=== PATIENT | male | born 1995 | race Caucasian/White ===

== ENCOUNTER → 2020-10-13 10:58 | Outpatient (CLI) | payer OTHER, SELFPAY ==
[2020-10-14 18:33] LABS: SARS-CoV-2 RNA PCR Negative
== END ==
PROVIDERS: PCP Family Medicine; Visit Provider Nurse Practitioner Family
DX: R05 Cough (principal); Z20.822 Contact with and (suspected) exposure to COVID-19
CPT/HCPCS: C9803; U0003; U0005

== ENCOUNTER 2020-12-27 14:17 | Emergency (ER) | payer OTHER, SELFPAY ==
--- NOTE | ~2020-12-27 | XR_ITS ---
EXAMINATION: XR chest 1V portable 12/27/2020 14:36 INDICATION: Cough and congestion PROCEDURE: AP portable chest COMPARISON: 12/23/2018 FINDINGS: The lungs are clear. The cardiomediastinal silhouette is within normal limits. There are no pleural effusions. There is no pneumothorax suspected. IMPRESSION: 1: NO ACUTE CARDIOPULMONARY DISEASE. Reviewed, dictated and finalized at location A.
[2020-12-27 14:19] VITALS: BP 140/89; PULSE 90; RESP 17; TEMP 36.4; O2SAT 100
[2020-12-27 14:27] VITALS: O2SAT 100
--- NOTE | 2020-12-27 15:15 | ED.GENADULT ---
HPI - General Adult General Chief complaint: Upper Respiratory Infection Stated complaint: i've been feeling sick for the last 3 days Time Seen by Provider: 12/27/20 14:27 Source: patient Mode of arrival: ambulatory Limitations: no limitations History of Present Illness HPI narrative: Patient presents for evaluation of sore throat for the last three days. He reports sinus congestion, mucopurulent discharge from both nares, and subjective fever. He has also had a productive cough of clear/yellow sputum. No objective fevers, chills, nausea, vomiting. No one else has similar symptoms. He has received both of his COVID vaccines. He has some myalgias and joint pain. He has tried several OTC therapies with mild improvement in his symptoms. He admits to vaping. Related Data Allergies Allergy/AdvReac Type Severity Reaction Status Date / Time No Known Allergies Allergy Verified 12/27/20 14:27 Review of Systems Review of Systems: Narrative: CONSTITUTIONAL: Reports subjective fever. Denies objective fever, chills, or sweats. EYES: Denies visual changes, redness, or discharge. ENT: Reports sore throat, sinus congestion and thick mucopurulent drainage from both nares. CARDIOVASCULAR: Denies chest pain, palpitations, or edema. RESPIRATORY: Reports productive cough of yellow sputum. Denies SOB. GASTROINTESTINAL: Denies abdominal pain, nausea, vomiting, or diarrhea. GENITOURINARY: Denies dysuria or hematuria. SKIN: Denies rash or itching. MUSCULOSKELETAL: Reports generalized myalgias and joint pain NEUROLOGIC: Denies headache, numbness, dizziness, or weakness. PSYCHIATRIC: Denies anxiety or depression. [facility] Past Medical History Medical History Clavicle fracture, shaft (12/23/18) Hx of fracture of clavicle Pain of left clavicle Right rotator cuff tendinitis Surgical History Surgical History Hx of tonsillectomy Family History Family History Mother Hypertension Other Family history of arthritis Social History Social History Smoking status: Current every day smoker Tobacco type: e-cigarettes/vaping Alcohol intake: current Drinks per week: 4 Substance use: former Substance use type: marijuana Gender identity (if verbalized by the patient): Male Exam Narrative: Exam Narrative: GENERAL: Well-appearing, well-nourished, and in no acute distress. HEAD: Normocephalic, atraumatic. EYES: PERRLA and EOMI. ENT: Nares clear, no rhinorrhea or epistaxis. Mucous membranes moist. Tonsils are surgically absent. Posterior pharyngeal erythema without exudate. Uvula is midline. Bilateral TMs pearly brooks nonbulging NECK: Supple. No adenopathy or masses. No carotid bruits or JVD CHEST: Clear to auscultation. No respiratory distress. No wheezes rales or rhonchi HEART: Regular rate and rhythm. No murmur heard. Normal peripheral pulses. ABDOMEN: Soft, nontender, nondistended, normal active bowel sounds. EXTREMITIES: Normal range of motion. No edema. SKIN: Warm, dry, no rash. NEURO: No focal deficits. Alert and oriented x3. PSYCH: Normal mood and affect. Course Course Emergency Course: This is a 25-year-old male who presents with complaints of sore throat, mucopurulent drainage from both nares, productive cough of yellow sputum. CXR negative. Hx of tonsillitis. He has symptoms consistent with ABRS and was started on augmentin. Continue with OTC therapies as needed. Follow up outpatient and return for worsening symptoms. Pt in agreement with plan of care. Vital Signs Vital signs: Vital Signs Temperature 36.4 C 12/27/20 14:19 Pulse Rate 90 12/27/20 14:19 Respiratory Rate 17 12/27/20 14:19 Blood Pressure 140/89 12/27/20 14:19 Pulse Oximetry 100 12/27/20 14:19
[2020-12-27 15:39] VITALS: BP 138/84; PULSE 92; RESP 18; O2SAT 100
== END 2020-12-27 15:41 | disposition home or self-care (01) ==
PROVIDERS: Emergency Provider Nurse Practitioner; PCP Family Medicine
DX: J02.9 Acute pharyngitis, unspecified (principal); J01.80 Other acute sinusitis; F17.290 Nicotine dependence, other tobacco product, uncomplicated
CPT/HCPCS: 71045; 87081; 87880; 99283

== ENCOUNTER 2021-07-06 03:06 | Day surgery (SDC) | payer OTHER, SELFPAY ==
[2021-06-18 14:21] VITALS: BMI 25.0
[2021-07-06 08:01] VITALS: BP 142/76; PULSE 58; RESP 18; TEMP 36.2; O2SAT 100
[2021-07-06] MEDS: LACTATED RINGERS 1,000 ML 150 ML IV CONT (08:08)
--- NOTE | 2021-07-06 08:41 | P.PNAN_ITS ---
Anes - Initial Pre Proc Eval Procedure: Operation Date: 07/06/21 09:00 Proposed Procedures p Colonoscopy - Jorje Nunez MD Date/Time: 07/06/21 08:41 Surgeon: Jorje Nunez MD Pre Op Diagnosis: diarrhea Patient Data Age: 25 Gender: M Height: 1.85 m Weight: 92.1 kg Last Vital Signs Temp 97.1 F L 07/06/21 08:01 Pulse 58 L 07/06/21 08:01 Resp 18 07/06/21 08:01 BP 142/76 H 07/06/21 08:01 Pulse Ox 100 07/06/21 08:01 Allergies Allergy/AdvReac Type Severity Reaction Status Date / Time No Known Allergies Allergy Verified 07/06/21 07:59 Home Medications Medication Instructions Recorded Confirmed Type albuterol sulfate 90 mcg/actuation 1 puff INHALATION Q4H PRN 06/22/21 07/06/21 History aerosol inhaler escitalopram oxalate 5 mg PO DAILY 07/03/21 07/06/21 History methylphenidate HCl [Ritalin] 10 mg PO BID PRN 07/03/21 07/06/21 History Patient hx anesthesia problems: none Family hx anesthesia problems: none Results Review: All pre-operative results and documents have been reviewed as part of the pre-operative evaluation. [facility] Past Medical History Medical History (Updated 06/22/21 @ 14:19 by Yolanda De La Fuente CMA) Allergies Asthma Clavicle fracture, shaft (12/23/18) History of IBS Hx of fracture of clavicle Pain of left clavicle Right rotator cuff tendinitis Surgical History Surgical History Hx of tonsillectomy Family History Family History (Updated 06/22/21 @ 14:21 by Yolanda De La Fuente CMA) Mother Hypertension Father Depression Hypertension Sibling Asthma Depression Heart problem Grandparent Alcoholism Cancer Hypertension Depression Cerebrovascular accident Other Family history of arthritis Social History Social History Smoking status: Current every day smoker Tobacco type: e-cigarettes/vaping Alcohol intake: current Drinks per week: 5 Substance use: former Substance use type: marijuana Living arrangements: with family Gender identity (if verbalized by the patient): Male Sexual Orientation (if Verbalized by the Patient): Straight or Heterosexual Spiritual care concerns: No Anes - Eval Final PreProcedure Day of Procedure 07/06/21 08:41 Patient weight: overweight Heart: regular rate and rhythm Lungs: clear to auscultation Airway: Mallampati scale class II Neurological: alert and oriented Last oral intake: >/= 8 hours ASA classification: II Emergent: no Anesthetic plan: proceed Anesthesia type and monitoring: general GIVS and standard monitoring Results Review: All pre-operative results and documents have been reviewed as p art of the pre-operative evaluation. Informed Consent: The patient's anesthetic plan and its attendant risks and benefits were discussed with the patient/family/POA. Questions were solicited and answers provided to the satisfaction of the patient/family/POA.
--- NOTE | 2021-07-06 08:46 | PM.HPGS ---
History of Present Illness History of Present Illness Consent: Risks, benefits, and alternatives have been discussed and questions answered. Patient agrees to proceed with procedure. Chief complaint: diarrhea Narrative: Manuel Neal is a 25 year old male who has been suffering from diarrhea for several months. He would typically have 2 days of loose stools and may be 1 day of normal bowel movement. Recently however he has had continuing diarrhea, watery stools for the past couple of weeks. He does not see blood in his stools. One sibling he thinks may have a problem with gluten. The patient has not lost weight Review of Systems Review of Systems: All systems reviewed & are unremarkable except as noted in HPI and below PMFSH Past Medical History Medical History Allergies Asthma Clavicle fracture, shaft (12/23/18) History of IBS Hx of fracture of clavicle Pain of left clavicle Right rotator cuff tendinitis Surgical History Surgical History Hx of tonsillectomy Family History Family History Mother Hypertension Father Depression Hypertension Sibling Asthma Depression Heart problem Grandparent Alcoholism Cancer Hypertension Depression Cerebrovascular accident Other Family history of arthritis Social History Social History Smoking status: Current every day smoker Tobacco type: e-cigarettes/vaping Alcohol intake: current Drinks per week: 5 Substance use: former Substance use type: marijuana Living arrangements: with family Gender identity (if verbalized by the patient): Male Sexual Orientation (if Verbalized by the Patient): Straight or Heterosexual Spiritual care concerns: No Meds Home Medications and Allergies Home Medications Medication Instructions Recorded Confirmed Type albuterol sulfate 90 mcg/actuation 1 puff INHALATION Q4H PRN 06/22/21 07/06/21 History aerosol inhaler escitalopram oxalate 5 mg PO DAILY 07/03/21 07/06/21 History methylphenidate HCl [Ritalin] 10 mg PO BID PRN 07/03/21 07/06/21 History Allergies Allergy/AdvReac Type Severity Reaction Status Date / Time No Known Allergies Allergy Verified 07/06/21 07:59 Vital Signs Vital Signs - 24 hr 07/06/21 08:01 Temperature 36.2 C L Pulse Rate 58 L Respiratory Rate 18 Blood Pressure 142/76 H Pulse Oximetry 100 Exam Resp: Auscultation: clear to auscultation bilaterally Cardio: Rate: regular rate Rhythm: regular rhythm GI: GI Palp: Yes Soft to palpation and No Tenderness to palpation present (GI) Assessment and Plan Assessment and plan (1) Diarrhea: Code(s): R19.7 - Diarrhea, unspecified Status: Acute Assessment and Plan: Colonoscopy with possible biopsy or polypectomy or cautery or injection of substances.
[2021-07-06 09:05] VITALS: BP 104/52; PULSE 61; RESP 18; O2SAT 97
[2021-07-06 09:15] VITALS: BP 106/57; PULSE 62; RESP 17; O2SAT 97
== END 2021-07-06 09:31 | disposition home or self-care (01) ==
PROVIDERS: PCP Family Medicine; Visit Provider Internal Medicine Gastroenterology
PROC: 0DJD8ZZ Inspection of Lower Intestinal Tract, Via Natural or Artificial Opening Endoscopic (ICD-10-PCS; CPT 45378; principal; 2021-07-06 09:00)
DX: Z12.11 Encounter for screening for malignant neoplasm of colon (principal); K52.9 Noninfective gastroenteritis and colitis, unspecified; J45.909 Unspecified asthma, uncomplicated; Z79.51 Long term (current) use of inhaled steroids; F17.290 Nicotine dependence, other tobacco product, uncomplicated
CPT/HCPCS: 45380; 88305; J2704; J7120

== ENCOUNTER 2021-08-25 12:19 | Outpatient (CLI) | payer BC, SELFPAY ==
--- NOTE | ~2021-08-25 | XR_ITS ---
XR sacroiliac joints min 3V DATE: 08/25/2021 12:59 INDICATION: Abnormal serological immunological findings TECHNIQUE: AP and bilateral oblique views COMPARISON: None FINDINGS: The pubic symphysis and sacroiliac joints appear intact. No erosive change or ankylosis of the sacroiliac joints. IMPRESSION: Negative Reviewed, dictated and finalized at Location A. Reviewed, dictated and finalized at location A. [facility] [employer] IMPRESSION: Negative
--- NOTE | ~2021-08-25 | XR_ITS ---
XR lumbar spine min 4V DATE: 08/25/2021 12:59 INDICATION: Abnormal immunological findings in serum TECHNIQUE: AP, lateral, coned lateral lumbosacral and bilateral oblique views COMPARISON: None FINDINGS: There are six functional lumbar vertebra. Bilateral L5 pars interarticularis defects are s uggested. Otherwise no fracture or bone destruction or spondylolisthesis. The lumbar pedicles are in tact. The sacroiliac joints are normal. IMPRESSION: Suggestion of bilateral L5 pars interarticularis defects; no spondylolisthesis or other s ignificant finding Normal sacroiliac joints Reviewed, dictated and finalized at location A. 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
== END 2021-08-25 12:20 | disposition home or self-care (01) ==
PROVIDERS: PCP Family Medicine; Visit Provider Internal Medicine
DX: M46.90 Unspecified inflammatory spondylopathy, site unspecified (principal); R19.7 Diarrhea, unspecified; R76.8 Other specified abnormal immunological findings in serum
CPT/HCPCS: 72110; 72202

== ENCOUNTER 2022-04-11 13:54 | Emergency (ER) | payer BC, SELFPAY ==
--- NOTE | ~2022-04-11 | XR_ITS ---
XR ankle RT min 3V DATE: 04/11/2022 14:28 INDICATION: Right ankle injury, lateral Technique: 4 views COMPARISON: None FINDINGS: No fracture or dislocation of the ankle or disruption of the ankle mortise. No periosteal r eaction or bone destruction. No soft tissue swelling. IMPRESSION: Negative Reviewed, dictated and finalized at location A. IMPRESSION: Negative
[2022-04-11 13:57] VITALS: BP 135/88; PULSE 76; RESP 15; TEMP 36.3; O2SAT 100
--- NOTE | 2022-04-11 14:09 | ED.LOWEXIN ---
HPI - Extremity Injury (Lower) General Chief Complaint: Extremity Injury, Lower Stated Complaint: Right ankle injury x 2 days ago Time Seen by Provider: 04/11/22 14:08 Source: patient Mode of arrival: ambulatory Limitations: no limitations History of Present Illness HPI Narrative: This is a 26 year old male that presents to the ER for right ankle injury sustained two nights ago. Reports he had been drinking Tuesday night and he thinks he twisted his ankle. He woke up on Tuesday with swelling and pain to the ankle. Denies any other injuries. Denies decreased ROM or numbness. Related Data Home Medications Medication Instructions Recorded Confirmed albuterol sulfate 90 mcg/actuation 1 puff inhalation Q4H PRN other 06/22/21 08/25/21 aerosol inhaler Allergies Allergy/AdvReac Type Severity Reaction Status Date / Time No Known Allergies Allergy Verified 04/11/22 14:35 Review of Systems Review of Systems: CONSTITUTIONAL: Denies fever MUSCULOSKELETAL: Reports joint pain, and myalgia. NEUROLOGIC: Denies numbness All systems reviewed & are unremarkable except as noted in HPI and below PMFSH Past Medical History Medical History Allergies Asthma Axial spondyloarthritis (~08/2021) Clavicle fracture, shaft (12/23/18) History of IBS Hx of fracture of clavicle Pain of left clavicle Right rotator cuff tendinitis Surgical History Surgical History Hx of tonsillectomy Family History Family History Mother Hypertension Father Depression Hypertension Sibling Asthma Depression Heart problem Grandparent Alcoholism Cancer Hypertension Depression Cerebrovascular accident Other Family history of arthritis Social History Social History Smoking status: Current every day smoker Tobacco type: e-cigarettes/vaping Alcohol intake: current Drinks per week: 5 Substance use: former Substance use type: marijuana Gender identity (if verbalized by the patient): Male Sexual Orientation (if Verbalized by the Patient): Straight or Heterosexual Spiritual care concerns: No Exam Narrative: GENERAL: Well-appearing, well-nourished, and in no acute distress. HEAD: Normocephalic, atraumatic. EYES: EOMI. EXTREMITIES: Normal range of motion. No obvious deformity. Mild edema about the right lateral malleoli. Normal DP pulse. Normal sensation SKIN: Warm, dry, no rash. NEURO: No focal deficits. Alert and oriented x3. PSYCH: Normal mood and affect Course Vital Signs Vital signs: Vital Signs Temperature 97.3 F L 04/11/22 13:57 Pulse Rate 76 04/11/22 13:57 Respiratory Rate 15 04/11/22 13:57 Blood Pressure 135/88 04/11/22 13:57 Pulse Oximetry 100 04/11/22 13:57 Oxygen Delivery Room Air 04/11/22 13:57 Temperature 97.3 F L 04/11/22 13:57 Pulse Rate 76 04/11/22 13:57 Respiratory Rate 15 04/11/22 13:57 Blood Pressure 135/88 04/11/22 13:57 Pulse Oximetry 100 04/11/22 13:57 Oxygen Delivery Room Air 04/11/22 13:57 MDM - Extremity Injury (Lower) MDM Narrative Medical decision making narrative: This is a 26 year old male that presents to the ER for right ankle pain after an injury sustained 2 days ago. Patient is neurovascularly intact. Ankle x-ray without acute osseous abnormalities. Patient placed in Cam wrap and given crutches. Instructed on care of ankle sprain. He is to follow-up with primary care doctor. He was given warnings to return to the ER Imaging Data Radiologist's impression: ITS Impressions Ankle X-Ray 04/11/22 14:32 IMPRESSION: Negative Critical Care Time Critical Care Time Critical Care Time: No Discharge Plan Discharge Clinical Impression: Ankle sprain Qualifiers: Encounter type: initial
== END 2022-04-11 14:57 | disposition home or self-care (01) ==
PROVIDERS: Emergency Provider Emergency Medicine; PCP Family Medicine
DX: S93.401A Sprain of unspecified ligament of right ankle, initial encounter (principal); X50.0XXA Overexertion from strenuous movement or load, initial encounter; J45.909 Unspecified asthma, uncomplicated; Z79.51 Long term (current) use of inhaled steroids; F17.290 Nicotine dependence, other tobacco product, uncomplicated
CPT/HCPCS: 73610; 99283

== ENCOUNTER 2023-01-18 11:05 | Outpatient (CLI) | payer OTHER, SELFPAY ==
--- NOTE | ~2023-01-18 | US_ITS ---
US abdomen limited INDICATION: Transaminitis PROCEDURE: Realtime right upper abdominal ultrasound. COMPARISON: No prior studies for comparison. FINDINGS: The pancreas is normal without focal mass or pancreatic ductal dilation. Liver echotexture is normal without focal mass or intrahepatic biliary dilatation. There is normal directional flow i n the portal vein. The gallbladder is normal without stones, gallbladder wall thickening or pericholecystic fluid. Comm on bile duct measures 3 mm. No sonographic Wing's sign. IMPRESSION: 1: Normal limited abdominal ultrasound. Reviewed, dictated and finalized at location L.
[2023-01-18 11:40] LABS: Basophils Absolute Auto 0.1 K/mm3 (0.0-0.1); Basophils Percent Auto 1.1 % (0.2-1.2); Eosinophils Absolute Auto 0.3 K/mm3 (0-0.3); Eosinophils Percent Auto 6.2 % (0-4.4); Hematocrit 47.8 % (42.0-52.0); Hemoglobin 16.4 g/dL (14.0-18.0); Immature Granulocyte Absolute 0.01 K/mm3 (0.00-0.031); Immature Granulocyte Percent A 0.2 % (0-0.5); Lymphocytes Absolute Auto 1.15 K/mm3 (0.9-3.2); Lymphocytes Percent Auto 24.5 % (18.3-44.2); Mean Corpuscular HGB Conc 34.3 g/dl (32-36); Mean Corpuscular Hemoglobin 30.9 pg (26-34); Mean Corpuscular Volume 90.2 fl (80-100); Mean Platelet Volume 10.9 fl (7.4-10.4); Monocytes Absolute Auto 0.8 K/mm3 (0.1-0.6); Monocytes Percent Auto 17.9 % (2.6-8.5); Neutrophils Absolute Auto 2.4 K/mm3 (1.3-6.7); Neutrophils Percent Auto 50.1 % (45.5-73.1); Platelet Count Result 222 k/mm3 (150-375); Red Cell Distribution Width 12.1 % (11.5-14.5); White Blood Count 4.7 K/mm3 (4.5-10.0)
[2023-01-18 12:02] LABS: Alanine Aminotransferase 127 U/L (6-50); Albumin Level 4.2 g/dL (3.5-5.1); Alkaline Phosphatase 48 U/L (38-126); Anion Gap 8 mmol/L (8-16); Aspartate Amino Transferase 77 U/L (17-59); Bilirubin,Total 0.4 mg/dL (0.2-1.3); Blood Urea Nitrogen 10 mg/dL (9-20); Calcium 8.8 mg/dL (8.4-10.2); Carbon Dioxide 28 mmol/L (22-30); Chloride 105 mmol/L (98-107); Creatine Kinase 99 U/L (55-170); Estimated Glomerular Filt Rate > 60; Glucose 89 mg/dL (65-110); Potassium 4.1 mmol/L (3.4-5.0); Sodium 141 mmol/L (137-145)
[2023-01-21 19:27] LABS: GGT 26 U/L (3-70)
== END 2023-01-18 11:06 | disposition home or self-care (01) ==
PROVIDERS: PCP Family Medicine; Visit Provider Physician Assistant
DX: R74.01 Elevation of levels of liver transaminase levels (principal); R71.8 Other abnormality of red blood cells
CPT/HCPCS: 36415; 76705; 80048; 80076; 82550; 82977; 85025

== ENCOUNTER 2023-07-11 13:25 | Emergency (ER) | payer OTHER, SELFPAY ==
--- NOTE | ~2023-07-11 | XR_ITS ---
EXAMINATION: XR toe 1st RT min 2V DATE: 07/11/2023 14:45 INDICATION: Possible open fracture at the right great toe TECHNIQUE: Dorsal plantar, lateral and oblique views of the right first were obtained. COMPARISON: None FINDINGS: Bone alignment is normal. There is a tiny ovoid ossific density with smooth margins overlying what ap pears to be a chronic juxta articular erosion at the medial head of the right first proximal phalanx. Appearance suggests either sequela chronic avulsion fracture or dystrophic calcification related ero libia secondary to or inflammatory or crystalline arthropathy such as gout. There is an additional age -indeterminate tiny calcific density projecting along the dorsal/medial margin of the tuft of the rig ht first distal phalanx but without evident donor site to more specifically suggest fracture. No othe r lesions suspicious for fracture identified. Joint spaces are normal. Soft tissues are unremarkable. IMPRESSION: 1. Tiny age-indeterminate calcific density along the medial tuft of the right distal phalanx without definitive fracture line or evident donor site to more specifically suggest fracture. 2. Additional tiny chronic appearing ossific density adjacent to a chronic appearing erosions with co rticated margins at the medial head of the first proximal phalanx suggesting either sequela of chroni c medial collateral ligament avulsion injury or dystrophic calcific lesion in setting of an inflammat ory arthritis such as gout. Reviewed, dictated and finalized at location A. 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 Tiny age-indeterminate calcific density along the medial tuft of the right d istal phalanx without definitive fracture line or evident donor site to more sp ecifically suggest fracture. 2. Additional tiny chronic appearing ossific density adjacent to a chronic appe aring erosions with corticated margins at the medial head of the first proximal phalanx suggesting either sequela of chronic medial collateral ligament avulsi on injury or dystrophic calcific lesion in setting of an inflammatory arthritis such as gout.
[2023-07-11 13:38] VITALS: BP 141/92; PULSE 64; RESP 20; TEMP 36.8; O2SAT 99
[2023-07-11] MEDS: TETANUS,DIPHTHERIA,AC PERTUSSIS ADULT (0.5 ML) BOOSTRIX IM (14:21)
[2023-07-11] MEDS: CEPHALEXIN 500 MG CAPSULE PO (14:21)
--- NOTE | 2023-07-11 14:32 | ED.LOWEXIN ---
HPI - Extremity Injury (Lower) General Chief Complaint: Extremity Injury, Lower Stated Complaint: right great toe injury Time Seen by Provider: 07/11/23 14:17 Source: patient Mode of arrival: ambulatory Limitations: no limitations History of Present Illness HPI Narrative: This is a 27 year old male that presents to the ER for right great toe pain. Ongoing since an injury yesterday. Reports he dropped a board on his great toe. He was seen at urgent care and sent to the ER for further evaluation. He is not up to date on tetanus. Denies numbness. Related Data Home Medications Medication Instructions Recorded Confirmed albuterol sulfate 90 mcg/actuation 1 puff inhalation Q4H PRN other 06/22/21 05/12/23 aerosol inhaler dextroamphetamine-amphetamine 5 mg 5 mg PO DAILY 12/29/22 05/12/23 tablet (Adderall) lisdexamfetamine 60 mg capsule 60 mg PO DAILY 12/29/22 05/12/23 (Vyvanse) Allergies Allergy/AdvReac Type Severity Reaction Status Date / Time No Known Allergies Allergy Verified 05/12/23 13:06 Review of Systems Review of Systems: CONSTITUTIONAL: Denies fever MUSCULOSKELETAL: Reports joint pain, and myalgia. NEUROLOGIC: Denies numbness All systems reviewed & are unremarkable except as noted in HPI and below PMFSH Past Medical History Medical History Allergies Asthma Axial spondyloarthritis (~08/2021) Clavicle fracture, shaft (12/23/18) Exposure to communicable disease History of IBS Hx of fracture of clavicle Pain of left clavicle Right rotator cuff tendinitis Surgical History Surgical History Hx of tonsillectomy Status post ORIF of fracture of ankle Family History Family History Mother Hypertension Father Depression Hypertension Sibling Asthma Depression Heart problem Grandparent Alcoholism Cancer Hypertension Depression Cerebrovascular accident Other Family history of arthritis Social History Social History Smoking status: Current every day smoker Tobacco type: e-cigarettes/vaping Alcohol intake: current Drinks per week: 5 Substance use: former Substance use type: marijuana Living arrangements: with family Occupation/Education: student Gender identity (if verbalized by the patient): Male Sexual Orientation (if Verbalized by the Patient): Straight or Heterosexual Spiritual care concerns: No Exam Narrative: GENERAL: Well-appearing, well-nourished, and in no acute distress. HEAD: Normocephalic, atraumatic. EYES: EOMI. EXTREMITIES: Normal range of motion. Mild edema with mild bruising to the right great toe with mild surrounding redness. Normal DP pulse. Normal sensation SKIN: Warm, dry, no rash. NEURO: No focal deficits. Alert and oriented x3. PSYCH: Normal mood and affect Course Course Emergency Course: Patient left after being seen by myself and before finishing his evaluation Vital Signs Vital signs: Vital Signs Temperature 98.3 F 07/11/23 13:38 Pulse Rate 64 07/11/23 13:38 Respiratory Rate 20 07/11/23 13:38 Blood Pressure 141/92 H 07/11/23 13:38 Pulse Oximetry 99 07/11/23 13:38 Oxygen Delivery Room Air 07/11/23 13:38 Temperature 98.3 F 07/11/23 13:38 Pulse Rate 64 07/11/23 13:38 Respiratory Rate 20 07/11/23 13:38 Blood Pressure 141/92 H 07/11/23 13:38 Pulse Oximetry 99 07/11/23 13:38 Oxygen Delivery Room Air 07/11/23 13:38 MDM - Extremity Injury (Lower) MDM Narrative Medical decision making narrative: Patient presents to the emergency department for right great toe injury sustained yesterday. He was seen at urgent care and sent here for further evaluation. He is neurovascularly intact. Right great toe x-ray shows likely chronic findings. Patient with
== END 2023-07-11 16:40 | disposition left against medical advice (07) ==
PROVIDERS: Emergency Provider Physician Assistant; PCP Family Medicine
DX: M79.674 Pain in right toe(s) (principal); F17.290 Nicotine dependence, other tobacco product, uncomplicated; Z23 Encounter for immunization
CPT/HCPCS: 73660; 90715; 96372; 99283; A9270

== ENCOUNTER 2024-03-20 14:58 | Emergency (ER) | payer OTHER, SELFPAY ==
--- NOTE | ~2024-03-20 | US_ITS ---
EXAMINATION: US scrotum doppler DATE: 03/20/2024 16:06 INDICATION: 2 weeks of right testicular pain TECHNIQUE: Testicular sonogram utilizing grayscale and Doppler COMPARISON: None. FINDINGS: The right testis measures 5.2 x 2.6 x 3.4 cm. The left testis measures 5.4 x 2.7 x 2.4 cm. Symmetric normal grayscale appearance to both testes. There is asymmetric hyperemia in the right testis consist ent with orchitis. The right epididymis is normal with normal vascular flow. The left epididymis is n ormal with normal vascular flow. There is no varicocele or hydrocele. IMPRESSION: 1. Asymmetric hyperemia on color Doppler at the otherwise normal-appearing right testis suggestive o f orchitis. Reviewed, dictated and finalized at location A. IMPRESSION: 1. Asymmetric hyperemia on color Doppler at the otherwise normal-appearing rig ht testis suggestive of orchitis.
[2024-03-20 15:29] VITALS: BP 147/106; PULSE 94; RESP 16; TEMP 36.4; O2SAT 96
--- NOTE | 2024-03-20 15:30 | ED.MALEGU ---
HPI - Male Genitourinary General Chief complaint: Urogenital-Male <Terrance Magana APRN - Last Filed: 03/20/24 15:39> Stated complaint: issues with testicles <Terrance Magana APRN - Last Filed: 03/20/24 15:39> Time Seen by Provider: 03/20/24 18:42 <Terrance Magana APRN - Last Filed: 03/20/24 15:39> Focused HPI: GENERAL: Well-appearing, well-nourished, and in no acute distress. HEAD: Normocephalic, atraumatic. CHEST: Clear to auscultation. No respiratory distress. HEART: Regular rate and rhythm. NEURO: Alert and oriented x3. Patient screened in triage and initial orders placed. Additional care and disposition to be based upon diagnostic testing and treatment. Patient reports right testicle pain x2 weeks <Terrance Magana APRN - Last Filed: 03/20/24 15:39> History of Present Illness HPI Narrative: 28-year-old male presents to emergency department for right testicular pain for 2 weeks. Patient states the pain started after he tripped on a step and caught himself with his leg. He had no other injuries acquired. States he began having right testicular pain since that is better when he is still, worse when he is moving and better when he is elevating his testicles. He denies dysuria or hematuria, urinary frequency urgency, abdominal pain, penile discharge, fever, nausea or vomiting. States he has been sexually active with 1 partner. Denies concern for STDs. <Holley Truong PA-C - Last Filed: 03/20/24 18:59> Related Data Home medications: Home Medications Medication Instructions Recorded Confirmed albuterol sulfate 90 mcg/actuation 1 puff inhalation Q4H PRN other 06/22/21 12/21/23 aerosol inhaler dextroamphetamine-amphetamine 10 PO PRN 12/21/23 12/21/23 mg tablet <Terrance Magana APRN - Last Filed: 03/20/24 15:39> Allergies/Adverse reactions: Allergies Allergy/AdvReac Type Severity Reaction Status Date / Time No Known Allergies Allergy Verified 03/20/24 18:13 <Terrance Magana APRN - Last Filed: 03/20/24 15:39> Review of Systems Review of Systems: All systems reviewed & are unremarkable except as noted in HPI and below <Holley Truong PA-C - Last Filed: 03/20/24 18:59> PMFSH Past Medical History Medical History: Medical History Allergies Asthma Axial spondyloarthritis (~08/2021) Clavicle fracture, shaft (12/23/18) Depression Exposure to communicable disease History of IBS Hx of fracture of clavicle Pain of left clavicle Right rotator cuff tendinitis <Terrance Magana APRN - Last Filed: 03/20/24 15:39> Surgical History Surgical History: Surgical History Hx of tonsillectomy Status post ORIF of fracture of ankle <Terrance Magana APRN - Last Filed: 03/20/24 15:39> Family History Family History: Family History Mother Hypertension Father Depression Hypertension Sibling Asthma Depression Heart problem Grandparent Alcoholism Cancer Hypertension Depression Cerebrovascular accident Other Family history of arthritis <Terrance Magana, INTERNET MARKETING ASSISTANT - Last Filed: 03/20/24 15:39> Social History Social History: Social History Smoking status: Current every day smoker Tobacco type: e-cigarettes/vaping Alcohol intake: current Drinks per week: 5 Substance use: former Substance use type: marijuana Living arrangements: with family Occupation/Education: student Gender identity (if verbalized by the patient): Male Sexual Orientation (if Verbalized by the Patient): Straight or Heterosexual Spiritual care concerns: No <Terrance Magana APRN - Last Filed: 03/20/24 15:39> Exam Narrative: GENERAL: Well-appearing, well-nourished, and in no acute distress. HEAD:
[2024-03-20 15:50] LABS: Add Urine Microscopic? YES; Appearance Urine Clear (Clear); Bacteria Urine None Seen /hpf; Bilirubin Urine Negative (Negative); Blood Urine 1+ (Negative); Color Urine Yellow (Yellow); Glucose Urine UA Negative (Negative); Ketones Urine 1+ mg/dL (Negative); Leukocyte Esterase Ur Negative LEU/UL (Negative); Nitrate Urine Negative (Negative); Non Pathogenic Casts 0-2; Protein Urine Trace mg/dL (Negative); Specific Grav Ur 1.025 (1.001-1.035); Squamous Epithelial Cell Urine None Seen /hpf (Few); WBC Urine 0-5 /hpf (0-3); pH Urine 6.5 (5.0-9.0)
[2024-03-20 18:00] LABS: Chlamydia trachomatis NOT DETECTED (NOT DETECTE); Neisseria gonorrhoeae PCR NOT DETECTED (NOT DETECTE)
[2024-03-20 18:14] VITALS: BP 131/93; PULSE 96; RESP 15; O2SAT 99
[2024-03-20] MEDS: LIDOCAINE HCL 1% LOCAL INJ 10 ML VIAL (19:01)
[2024-03-20] MEDS: DOXYCYCLINE HYCLATE 100 MG TABLET PO (19:01)
[2024-03-20] MEDS: cefTRIAXone 1 GM VIAL 0.5 GM IM (19:02)
[2024-03-20 19:11] VITALS: BP 130/88; PULSE 91; RESP 15; O2SAT 100
== END 2024-03-20 19:12 | disposition home or self-care (01) ==
PROVIDERS: Nurse Practitioner Family; Emergency Provider Physician Assistant; PCP Family Medicine
DX: N45.2 Orchitis (principal); J45.909 Unspecified asthma, uncomplicated; K58.9 Irritable bowel syndrome, unspecified; F32.A Depression, unspecified; F17.290 Nicotine dependence, other tobacco product, uncomplicated
CPT/HCPCS: 76870; 81001; 87491; 87591; 93976; 96372; 99284; A9270; J0696